=== PATIENT | male | born 1950 | race Caucasian/White ===

== ENCOUNTER → 2020-09-07 17:40 | Outpatient (CLI) | payer MEDICARE, SELFPAY ==
[2020-09-07 18:33] LABS: Alanine Aminotransferase 15 U/L (12-78); Albumin Level 4.3 g/dl (3.5-5.0); Albumin/Globulin Ratio 1.5 (1.1-1.8); Alkaline Phosphatase 48 U/L (38-126); Anion Gap 13.9 mEq/L (5-15); Aspartate Amino Transferase 28 U/L (17-59); Bilirubin,Total 0.5 mg/dl (0.2-1.3); Blood Urea Nitrogen 18 mg/dl (9-20); Calcium 9.9 mg/dl (8.4-10.2); Carbon Dioxide 24 mmol/L (22.0-30.0); Chloride 107 mmol/L (98-107); Chol/HDL Ratio 5.9 (1-3.5); Cholesterol 208 mg/dl (140-200); Estimated Glomerular Filt Rate 54 ml/min (>60); GFR (African American) 66 ML/MIN (>60); Globulin 2.8 g/dL (1.3-3.2); Glucose 121 mg/dl (74-100); HDL Cholesterol 35 mg/dl (40-60); Potassium 3.9 mmoL/L (3.5-5.1); Sodium 141 mmol/L (136-145); Total Protein,Serum 7.1 g/dl (6.3-8.2); Triglycerides 345 mg/dl (30-150); VLDL Cholesterol 69 mg/dL (0-40)
[2020-09-07 18:38] LABS: Basophils # 0.1 K/mm3 (0-0.2); Basophils % 1.3 % (0.1-2.0); Eosinophils # 0.4 K/mm3 (0.0-0.4); Eosinophils % 4.8 % (0.1-12.0); Hematocrit 46.1 % (42.0-52.0); Hemoglobin 15.4 g/dL (14.1-18.0); Lymphocytes # 2.8 K/mm3 (0.7-4.5); Lymphocytes % 33.8 % (10-50); Mean Corpuscular HGB Conc 33.5 g/dL (31.8-35.4); Mean Corpuscular Hemoglobin 32.2 pg (27.0-31.2); Mean Corpuscular Volume 96.1 fl (80-94); Mean Platelet Volume 10.1 fl (7.4-10.4); Monocytes # 0.5 K/mm3 (0.1-1.0); Monocytes % 5.9 % (1.7-9.3); Neutrophils # 4.5 K/mm3 (1.8-7.8); Neutrophils % 54.1 % (37.0-80.0); Platelet Count 259 K/mm3 (142-424); Red Cell Distribution Width 13.4 % (11.5-17.5); White Blood Count 8.4 K/mm3 (4.8-10.8)
[2020-09-07 18:44] LABS: Direct LDL Cholesterol 124.62 mg/dL (100-129)
[2020-09-07 19:04] LABS: Thyroid Stimulating Hormone 1.03 uIU/mL (0.465-4.68)
[2020-09-09 13:01] LABS: PSA, Free 0.31 ng/mL; Prostate Specific Ag 1.1 ng/mL (0.0-4.0)
== END ==
PROVIDERS: Visit Provider Family Medicine
DX: G20 Parkinson's disease (principal); I10 Essential (primary) hypertension; M15.4 Erosive (osteo)arthritis; Z86.010 Personal history of colon polyps
CPT/HCPCS: 80053; 80061; 84153; 84154; 84443; 85025

== ENCOUNTER → 2021-03-04 14:20 | Outpatient (CLI) | payer MEDICARE, SELFPAY ==
[2021-03-04 14:35] LABS: Alanine Aminotransferase 25 U/L (12-78); Albumin Level 4.6 g/dl (3.5-5.0); Albumin/Globulin Ratio 1.8 (1.1-1.8); Alkaline Phosphatase 58 U/L (38-126); Anion Gap 14.2 mEq/L (5-15); Aspartate Amino Transferase 24 U/L (17-59); Bilirubin,Total 0.6 mg/dl (0.2-1.3); Blood Urea Nitrogen 22 mg/dl (9-20); Calcium 9.9 mg/dl (8.4-10.2); Carbon Dioxide 24 mmol/L (22.0-30.0); Chloride 104 mmol/L (98-107); Chol/HDL Ratio 5.7 (1-3.5); Cholesterol 199 mg/dl (140-200); Estimated Glomerular Filt Rate 73 ml/min (>60); GFR (African American) 89 ML/MIN (>60); Globulin 2.6 g/dL (1.3-3.2); Glucose 123 mg/dl (74-100); HDL Cholesterol 35 mg/dl (40-60); Potassium 4.2 mmoL/L (3.5-5.1); Sodium 138 mmol/L (136-145); Total Protein,Serum 7.2 g/dl (6.3-8.2); Triglycerides 304 mg/dl (30-150); VLDL Cholesterol 61 mg/dL (0-40)
[2021-03-04 14:46] LABS: Direct LDL Cholesterol 119.37 mg/dL (100-129)
[2021-03-04 14:50] LABS: Basophils # 0.1 K/mm3 (0-0.2); Basophils % 1.1 % (0.1-2.0); Eosinophils # 0.2 K/mm3 (0.0-0.4); Eosinophils % 2.1 % (0.1-12.0); Hematocrit 46.4 % (42.0-52.0); Hemoglobin 15.5 g/dL (14.1-18.0); Lymphocytes # 2.5 K/mm3 (0.7-4.5); Lymphocytes % 26.9 % (10-50); Mean Corpuscular HGB Conc 33.5 g/dL (31.8-35.4); Mean Corpuscular Hemoglobin 31.8 pg (27.0-31.2); Mean Corpuscular Volume 94.8 fl (80-94); Mean Platelet Volume 9.3 fl (7.4-10.4); Monocytes # 0.5 K/mm3 (0.1-1.0); Monocytes % 5.1 % (1.7-9.3); Neutrophils # 5.9 K/mm3 (1.8-7.8); Neutrophils % 64.9 % (37.0-80.0); Platelet Count 283 K/mm3 (142-424); Red Blood Count 4.89 M/mm3 (4.60-6.20); Red Cell Distribution Width 13.4 % (11.5-17.5); White Blood Count 9.1 K/mm3 (4.8-10.8)
[2021-03-04 14:52] LABS: T4 (Thyroxine) 10.7 ug/dl (5.53-11.0)
[2021-03-04 15:05] LABS: Thyroid Stimulating Hormone 1.05 uIU/mL (0.465-4.68)
== END ==
PROVIDERS: Visit Provider Family Medicine
DX: I10 Essential (primary) hypertension (principal); Z00.00 Encounter for general adult medical examination without abnormal findings; E87.5 Hyperkalemia
CPT/HCPCS: 80053; 80061; 84436; 84443; 85025

== ENCOUNTER → 2023-04-09 13:36 | Outpatient (CLI) | payer MEDICARE, SELFPAY ==
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
== END ==
PROVIDERS: PCP Family Medicine; Visit Provider Family Medicine
DX: R60.0 Localized edema (principal); T79.9XXA Unspecified early complication of trauma, initial encounter; W30.9XXA Contact with unspecified agricultural machinery, initial encounter
CPT/HCPCS: 73700; 93971

== ENCOUNTER → 2023-04-15 13:46 | Outpatient (CLI) | payer MEDICARE, SELFPAY ==
--- NOTE | 2023-04-15 13:53 | US_ITS ---
FINAL REPORT CLINICAL HISTORY: possible foreign body (glass) left forearm FINDINGS: ULTRASOUND SOFT TISSUE LEFT ARM Limited sonographic images of the soft tissues of the left forearm were obtained. There is a 5 mm echogenic shadowing structure in the superficial presumed subcutaneous tissue adjacent to the left elbow. Precise location in regards to the or lateral is not evident. There is no surrounding fluid collection. IMPRESSION: 5 mm foreign body in the region of interest without surrounding abscess. Reviewed, Interpreted and Dictated by Robert Singleton MD Transcribed by Arielle Grant Authenticated and [facility]
--- NOTE | 2023-04-15 14:03 | XR_ITS ---
FINAL REPORT CLINICAL HISTORY: possible foreign body (glass) left forearm COMPARISON: None FINDINGS: 2 views of the left forearm were obtained. There is no acute fracture or dislocation. The joints are intact. There are 2 densities in the soft tissues along the dorsomedial proximal ulna measuring 3 and 4 mm respectively suspicious for foreign body. The distal soft tissues unremarkable. IMPRESSION: Two soft tissue densities proximal forearm suspicious for small foreign bodies. Correlate with site of suspected foreign body. Reviewed, Interpreted and Dictated by Robert Singleton MD Transcribed by Afua Trivedi Authenticated and [facility]
== END ==
PROVIDERS: PCP Family Medicine; Visit Provider Nurse Practitioner
DX: S50.852A Superficial foreign body of left forearm, initial encounter; M79.632 Pain in left forearm
CPT/HCPCS: 73090; 76882

== ENCOUNTER → 2023-09-28 08:20 | Outpatient (CLI) | payer MEDICARE, SELFPAY ==
[2023-09-28 19:45] LABS: Basophils # 0.1 K/mm3 (0-0.2); Basophils % 0.6 % (0.1-2.0); Eosinophils # 0.2 K/mm3 (0.0-0.4); Hematocrit 47.6 % (42.0-52.0); Hemoglobin 16.2 g/dL (14.1-18.0); Lymphocytes # 3.2 K/mm3 (0.7-4.5); Lymphocytes % 36.6 % (10-50); Mean Corpuscular HGB Conc 34.1 g/dL (31.8-35.4); Mean Corpuscular Hemoglobin 30.9 pg (27.0-31.2); Mean Corpuscular Volume 90.6 fl (80-94); Mean Platelet Volume 8.6 fl (7.4-10.4); Monocytes # 0.5 K/mm3 (0.1-1.0); Monocytes % 5.4 % (1.7-9.3); Neutrophils # 4.9 K/mm3 (1.8-7.8); Neutrophils % 55.5 % (37.0-80.0); Platelet Count 267 K/mm3 (142-424); Red Blood Count 5.25 M/mm3 (4.60-6.20); Red Cell Distribution Width 14.3 % (11.5-17.5); White Blood Count 8.8 K/mm3 (4.8-10.8)
[2023-09-28 19:52] LABS: Alanine Aminotransferase 28 U/L (12-78); Albumin Level 4.8 g/dl (3.5-5.0); Albumin/Globulin Ratio 1.5 (1.1-1.8); Alkaline Phosphatase 51 U/L (38-126); Anion Gap 14.7 mEq/L (5-15); Aspartate Amino Transferase 32 U/L (17-59); Bilirubin,Total 0.7 mg/dl (0.2-1.3); Blood Urea Nitrogen 23 mg/dl (9-20); Calcium 10.1 mg/dl (8.4-10.2); Carbon Dioxide 27 mmol/L (22.0-30.0); Chloride 102 mmol/L (98-107); Chol/HDL Ratio 6.4 (1-3.5); Cholesterol 211 mg/dl (140-200); Estimated Glomerular Filt Rate 59 ml/min (>60); GFR (African American) 71 ML/MIN (>60); Globulin 3.1 g/dL (1.3-3.2); Glucose 100 mg/dl (74-100); HDL Cholesterol 33 mg/dl (40-60); Potassium 3.7 mmoL/L (3.5-5.1); Sodium 140 mmol/L (136-145); Total Protein,Serum 7.9 g/dl (6.3-8.2); Triglycerides 276 mg/dl (30-150); VLDL Cholesterol 55 mg/dL (0-40)
[2023-09-28 20:03] LABS: Direct LDL Cholesterol 128.02 mg/dL (100-129)
[2023-09-28 20:22] LABS: Thyroid Stimulating Hormone 1.36 uIU/mL (0.465-4.68)
== END ==
PROVIDERS: PCP Family Medicine; Visit Provider Family Medicine
DX: I10 Essential (primary) hypertension (principal); Z00.00 Encounter for general adult medical examination without abnormal findings; E07.9 Disorder of thyroid, unspecified; Z12.5 Encounter for screening for malignant neoplasm of prostate
CPT/HCPCS: 80053; 80061; 84443; 85025; G0103

== ENCOUNTER 2024-07-05 11:00 | Outpatient (CLI) | payer MEDICARE, SELFPAY ==
[2024-07-05 22:10] LABS: Basophils # 0.1 K/mm3 (0-0.2); Basophils % 1.1 % (0.1-2.0); Eosinophils # 0.3 K/mm3 (0.0-0.4); Eosinophils % 4.4 % (0.1-12.0); Hematocrit 48.4 % (42.0-52.0); Hemoglobin 15.2 g/dL (14.1-18.0); Lymphocytes # 2.6 K/mm3 (0.7-4.5); Lymphocytes % 40.8 % (10-50); Mean Corpuscular HGB Conc 31.4 g/dL (31.8-35.4); Mean Corpuscular Hemoglobin 31.4 pg (27.0-31.2); Mean Corpuscular Volume 100.1 fl (80-94); Mean Platelet Volume 10.2 fl (7.4-10.4); Monocytes # 0.4 K/mm3 (0.1-1.0); Monocytes % 5.7 % (1.7-9.3); Platelet Count 223 K/mm3 (142-424); Red Blood Count 4.84 M/mm3 (4.60-6.20); Red Cell Distribution Width 13.8 % (11.5-17.5); White Blood Count 6.3 K/mm3 (4.8-10.8)
[2024-07-05 22:31] LABS: Alanine Aminotransferase 34 U/L (12-78); Albumin/Globulin Ratio 1.4 (1.1-1.8); Alkaline Phosphatase 48 U/L (38-126); Amylase 67 U/L (30-110); Anion Gap 13.3 mEq/L (5-15); Aspartate Amino Transferase 26 U/L (17-59); Bilirubin,Total 0.5 mg/dl (0.2-1.3); Blood Urea Nitrogen 21 mg/dl (9-20); Calcium 9.6 mg/dl (8.4-10.2); Carbon Dioxide 25 mmol/L (22.0-30.0); Chloride 104 mmol/L (98-107); Estimated Glomerular Filt Rate 59 ml/min (>60); GFR (African American) 71 ML/MIN (>60); Globulin 2.9 g/dL (1.3-3.2); Glucose 149 mg/dl (74-100); Lipase 106 U/L (23-300); Potassium 4.3 mmoL/L (3.5-5.1); Sodium 138 mmol/L (136-145); Total Protein,Serum 6.9 g/dl (6.3-8.2)
== END 2024-07-05 23:59 | disposition home or self-care (01) ==
LOC: LAB.DROPOF 07-06 13:42
PROVIDERS: PCP Nurse Practitioner; Visit Provider Nurse Practitioner
DX: R10.84 Generalized abdominal pain (principal)
CPT/HCPCS: 80053; 82150; 83690; 85025

== ENCOUNTER 2024-07-28 08:38 | Outpatient (CLI) | payer MEDICARE, SELFPAY ==
--- NOTE | 2024-07-28 08:46 | CT_ITS ---
FINAL REPORT TECHNIQUE: Axial images through the abdomen and pelvis were performed without contrast. This study was performed with techniques to keep radiation doses as low as reasonably achievable, (ALARA). Individualized dose reduction techniques using automated exposure control or adjustment of mA and/or kV according to the patient's size were employed. CLINICAL HISTORY: abd pain, dyspepsia COMPARISON: None FINDINGS: Abdomen: The lung bases are clear. There is mild fatty infiltration of the liver. There are gallstones present in the dependent portion of the gallbladder. The common bile duct is moderately distended, measuring 12 mm in diameter, with a questionable tiny density in the distal common bile duct, worrisome for possible choledocholithiasis. The spleen, pancreas, and adrenals are unremarkable. There are small right renal nonobstructing stones present, seen on image #38 of series 601. Pelvis: The urinary bladder is unremarkable. The appendix is not visualized. There is no pelvic mass or inflammation. Bilateral inguinal hernias are present containing fat, larger on the left than on the right. IMPRESSION: Gallstones are present in the dependent portion of the gallbladder, and the common bile duct is moderately distended, measuring 12 mm in diameter. There may be a tiny density in the distal common bile duct, that may represent choledocholithiasis. Small right nonobstructing renal stones are present. Reviewed, Interpreted and Dictated by Dylan Gonzalez MD Transcribed by Maryjane Donald Authenticated and [facility]
--- NOTE | 2024-07-28 08:46 | US_ITS ---
FINAL REPORT CLINICAL HISTORY: abd pain, dyspepsia FINDINGS: ULTRASOUND RIGHT UPPER QUADRANT: Sonographic images of the right upper quadrant were obtained. The pancreas is partially obscured. The liver is slightly inhomogeneous with some areas of increased echogenicity that likely represent focal fatty infiltration. The gallbladder contains a phrygian cap, and there is a small amount of sludge present. There is no evidence of biliary ductal dilatation.The common duct measures 3 mm. Limited images of the right kidney are unremarkable. IMPRESSION: Focal fatty infiltration of the liver. Phrygian cap in the gallbladder with a small amount of sludge. No evidence of biliary ductal dilatation is seen. Reviewed, Interpreted and Dictated by Dylan Gonzalez MD Transcribed by Maryjane Donald Authenticated and [facility]
== END 2024-07-28 23:59 | disposition home or self-care (01) ==
LOC: RAD 08:41
PROVIDERS: PCP Family Medicine; Visit Provider Family Medicine
DX: R10.9 Unspecified abdominal pain (principal); R10.13 Epigastric pain
CPT/HCPCS: 74176; 76705

== ENCOUNTER 2024-09-08 10:51 | Outpatient (CLI) | payer MEDICARE, SELFPAY ==
[2024-09-08 18:51] LABS: Adenovirus,PCR Not Detected (NotDetected); Bordetella Pertussis Not Detected (NotDetected); Chlamydophila Pneumoniae, PCR Not Detected (NotDetected); Coronavirus 229E Not Detected (NotDetected); Coronavirus NL63 Not Detected (NotDetected); Coronavirus OC43 Not Detected (NotDetected); Coronovirus HKU1,PCR Not Detected (NotDetected); Human Metapneumovirus Not Detected (NotDetected); Influenza A, PCR Not Detected (NotDetected); Influenza AH1, 2009 Not Detected (NotDetected); Influenza AH1, PCR Not Detected (NotDetected); Influenza AH3,PCR Not Detected (NotDetected); Influenza B, PCR Not Detected (NotDetected); Mycoplasma Pneumoniae, PCR Not Detected (NotDetected); Parainfluenza 1, PCR Not Detected (NotDetected); Parainfluenza 2, PCR Not Detected (NotDetected); Parainfluenza 3, PCR Not Detected (NotDetected); Parainfluenza 4, PCR Not Detected (NotDetected); Respiratory Syncytial Virus Not Detected (NotDetected); Rhinovirus/Enterovirus Not Detected (NotDetected)
[2024-09-08 23:22] LABS: Coronavirus 19, PCR Detected (NotDetected)
== END 2024-09-08 23:59 | disposition home or self-care (01) ==
LOC: LAB.DROPOF 09-09 09:44
PROVIDERS: PCP Nurse Practitioner Family; Visit Provider Nurse Practitioner Family
DX: J02.9 Acute pharyngitis, unspecified (principal)
CPT/HCPCS: 87070; 87265; 87486; 87581; 87632; 87635

== ENCOUNTER 2024-09-19 10:50 | Outpatient (CLI) | payer MEDICARE, SELFPAY | END 2024-09-19 23:59 | disposition home or self-care (01) | LOC: LAB.DROPOF 09-20 09:21 | PROVIDERS: PCP Nurse Practitioner; Visit Provider Nurse Practitioner | DX: L72.3 Sebaceous cyst (principal); L08.9 Local infection of the skin and subcutaneous tissue, unspecified | CPT/HCPCS: 87070; 87205 ==

== ENCOUNTER 2025-06-07 09:20 | Outpatient (CLI) | payer MEDICARE, SELFPAY ==
--- OUTSIDE RECORDS SUMMARY | 2024-06-30 09:18 | XMS_ITS | Continuity of Care Document ---
Author Name [facility] Organization [facility] Care Team Providers Care [employer] Operator Name Role Phone [facility] Unavailable Unavailable Problems Combined list of problems from Department of Defense and Veterans Affairs facilities. It does not include entries that were removed or entered in error. Problem Status Onset Date Problem Type Date of Resolution Comments Source Allergic rhinitis Active Condition [place] [place] Anxiety Active Condition [place] Benign essential hypertension Active Condition [place] Chronic obstructive pulmonary disease Active Condition [place] [facility] Exposure to environmental pollution, occupational Active Condition [place] Exposure to potentially hazardous substance Active Condition [facility] Haematoma of lower leg Active Condition [place] Hyperlipidemia Active Condition [place] Hypothyroidism Active Condition [place] Parkinsonian tremor Active Condition [facility] [place] Medications Combined list of outpatient medications from Department of Defense and Veterans Affairs facilities.Medications provided include 1) outpatient medications from the last 15 months, and 2) patient-reported medications. Medication Details Route Status Patient Instructions Prescription Expires Prescription Number Last Dispense Date Ordering Provider Order Date Order Qty Source ASCORBIC ACID 500MG TAB TAKE TWO TABLETS BY MOUTH ONCE DAILY ORAL ACTIVE SHEA,INE Z E 2017 [place] ASPIRIN 81MG TAB,CHEWABL E CHEW ONE TABLET BY MOUTH ONCE DAILY ORAL ACTIVE SHEA,BISI Z E 2017 [place] CARBIDOPA/L EVODOPA 25MG/100MG TAB TAKE ONE AND ONE-HALF (1 1/2) TABLETS CARBIDOP A 25/LEVOD OPA 250MG TAB BY MOUTH THREE TIMES A DAY ORAL ACTIVE SHEA,INE Z E 2018 [place] HYDROCHLORO THIAZIDE 12.5MG/LOSA RTAN POTASSIUM 50MG TAB TAKE ONE TABLET BY MOUTH ONCE DAILY ORAL ACTIVE SHEA,INE Z E 2017 [place] LEVOCETIRIZ INE DIHYDROCHLO RIDE 5MG TAB TAKE ONE TABLET BY MOUTH ORAL ACTIVE SHEA,INE Z E 2017 [place] LEVOTHYROXI NE NA 125MCG TAB (SYNTHROID) TAKE ONE TABLET BY MOUTH EVERY MORNING ORAL ACTIVE SHEA,BISI Pérez E 2017 [place] LORAZEPAM 2MG TAB TAKE ONE-HALF TABLET BY MOUTH TWICE A DAY ORAL ACTIVE SHEA,BISI Pérez E 2017 [place] METOPROLOL SUCCINATE 200MG TAB,SA TAKE ONE-HALF TABLET BY MOUTH ONCE DAILY ORAL ACTIVE SHEA,BISI Pérez E 2017 [place] PRAVASTATIN NA 40MG TAB TAKE ONE-HALF TABLET BY MOUTH ONCE DAILY ORAL ACTIVE SHEA,BISI Pérez E 2017 [place] RASAGILINE MESYLATE 0.5MG TAB TAKE TWO TABLETS BY MOUTH ONCE DAILY ORAL ACTIVE SHEA,BISI Pérez E 2018 [place] VITAMIN E 400UNT CAP TAKE 1 CAPSULE BY MOUTH ORAL ACTIVE SHEA,BISI Pérez E 2017 [place] [facility] Allergies, Adverse Reactions, Alerts Combined list of allergies from Department of Defense and Veterans Affairs facilities. It does not include entries that were removed or entered in error. Substance Category Reaction Severity Reaction type Status Date Reported Comments Source IBUPROFEN Propensity to adverse reactions to drug (finding) Low blood pressure active 8 [place] PENICILLIN Propensity to adverse reactions to drug (finding) Eruption, Headache active 8 [place] Immunizations Combined list of available immunizations from the Department of Defense and Veterans Affairs facilities. Immunization Series Date Given Administered By Site Reaction Lot Number CVX Code Drug Administrative Manager Status Comments Source COVID-19 (MODERNA), MRNA, LNP-S, PF, 100 MCG/0.5 ML DOSE 2 2020 207 complet ed [place] COVID-19 (MODERNA), MRNA, LNP-S, PF, 100 MCG/0.5 ML DOSE 1 2020 207 complet ed [place] TDAP 2017 115 complet ed [place] Encounters Combined list of: 1) Encounters from Department of Veterans Affairs facilities going backup to the last 18 months, not all VA inpatient encounters are included; 2) Encounters from the Department of Defense facilities going backup to 280 months. Location Location Details Encounter Type Encounter Number Reason For Visit Attending Provider ADM Date DC Date Status [facility] [id number] 06/30 [facility] Social History Combined list of available smoking, tobacco, and other social history from Department of Defense and Veterans Affairs facilities. Social History Type Response Date Comment [facility] e Tobacco smoking status [facility] VA-TOBACCO NEVER USED 08/12/20 23 [place] History of tobacco use VA-TOBACCO FORMER USER 08/20/2022 [place] History of tobacco use VA-TOBACCO NEVER USED 08/21/2021 [place] History of tobacco use LIFETIME NON-SMOKER 08/29/2020 [place] History of tobacco use VA-TOBACCO NEVER USED 08/24/2020 [place] History of tobacco use LIFETIME NON-SMOKER 08/24/2018 [place] History of tobacco use LIFETIME NON-SMOKER 08/05/2018 [place]
--- OUTSIDE RECORDS SUMMARY | 2025-02-07 05:30 | XMS_ITS | Continuity of Care Document ---
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 Continue as directed. - Active prednisolone acetate 1 % eye drops,suspension instill 1 drop by ophthalmic route 4 times every day into surgery eye beginning 2 days prior to surgery. Continue as directed. - Active Vigamox 0.5 % eye drops instill 1 drop by ophthalmic route 4 times every day into surgery eye beginning 2 days prior to surgery. Continue as directed. - Active lorazepam 2 mg tablet take 1 tablet by oral route 3 times every day as needed 2 MG - Active pravastatin 40 mg tablet take 1 tablet by oral route every day 40 MG - Active aspirin 81 mg tablet,delayed release take 1 tablet by oral route every day 81 MG - Active lisinopril 20 mg-hydrochlorothiazi de 12.5 mg tablet take 1 tablet by oral route every day 1.00 tablet - Active Tirosint 125 mcg capsule take 1 capsule by oral route every day 125 MCG - Active fenofibrate 160 mg tablet take 1 tablet by oral route every day 160 MG - Active Kapspargo Sprinkle 100 mg capsule,extended release take 1 capsule by oral route every day 100 MG - Active carbidopa 25 mg-levodopa 250 mg tablet take 1 tablet by oral route 3 times every day 1.00 tablet - Active rasagiline 1 mg tablet take 1 tablet by oral route every day 1 MG - Active Zyrtec 10 mg tablet take 1 tablet by oral route every day 10 MG - Active Procedures Procedure Date POSTOP FOLLOW-UP VISIT [facility] Post Op Follow Up Visit Extracapsular Cataract With IOL Manual O r Mech Complex Extracapsular Cataract With IOL Manual Or Mech Complex Wo Endoscopic Cyclo Ophthalmic Biometry W Iol Calculation Un ilateral Surg Deposit ASC OCT No Charge Uni Or Bi OFFICE/OUTPATIENT VISIT, EST, Moderate F Eye Exam Established Patient Comprehensi ve 1 Or More Visits Discission Of Secondary Membranous Catar act Yag 1 Or More Stages Discission Of Secondary Membranous Catar act Yag 1 Or More Stages Surgery Deposit OFFICE/OUTPATIENT VISIT, EST, Moderate J Post Op Follow Up Visit Post Op Follow Up Visit Post Op Follow Up Visit Extracapsular Cataract With IOL Manual Or Mech Complex Wo Endoscopic Cyclo Extracapsular Cataract With IOL Manual O r Mech Complex OCT No Charge Uni Or Bi CORNEAL TOPOGRAPHY Ophthalmic Biometry W Iol Calculation Un ilateral OFFICE/OUTPATIENT VISIT, NEW Advance Directives Directive Yes / No Effective Date File Name No Information Encounters Encounter Description Practice Location Reason(s) For Visit Diagnoses Date Provider Providers Copied on Encounter [facility] , [address] [place], [address], [place] tel:[phone] OSCAR PEREZ Phaco (chief complaint) Presence of intraocular lens Adonis Faulkner. [address] [place], [address], [place]. tel:[phone] Referring Provider: Kaushik Lamb, [address] [place], [place], [facility]. tel:[phone] [facility] , [address] [place], [address], [place] tel:[phone] OSCAR Brandeeálvaro 2 DAY PHACO (chief complaint) Presence of intraocular lens Antonella Umana. [address], [address], [place], [place], [id number], [place]. tel:[phone] Referring Provider: Dong Greer, [address], [place], [address] . tel:[phone] [facility], [address] [place], [place], [facility], [place] tel:[phone] [facility] [place] Age-related nuclear cataract, left eyePupillary abnormality, left eye [facility]. [address] [place], [place], [id number], [place]. tel:[phone] Referring Provider: Dong Greer, [address], [place], [address] . tel:[phone] [facility] , [address] [place], [place], [facility], [place] tel:[phone] [facility] [place] Age-related nuclear cataract, left eyePupillary abnormality, left eye Antonella Umana. [address], [address], [place], [place], [id number], [place]. tel:[phone] Referring Provider: Dong Greer, [address], [place], [address] . tel:[phone] [facility], [address] [place], [place], [facility], [place] tel:[phone] [facility] [place] No Information [facility]. [address] [place], [place], [id number], [place]. tel:[phone] [facility] , [address] [place], [address], [place] tel:[phone] [facility] Age-related nuclear cataract, left eye Antonella Umana. [address], [address], [place], [place], [id number], [place]. tel:[phone] Referring Provider: Dong Greer, [address], [place], [address] . tel:[phone] [facility] , [address] [place], [address], [place] tel:[phone] [facility] [place] No Information Corporate Doctor. [address] [place], [place], [id number], [place]. tel:[phone] Referring Provider: No Ref Doc No Referring Doc. OFFICE/OUTPAT IENT VISIT, EST, Moderate [facility] , [address] [place], [address], [place] tel:[phone] [facility] cataracts (chief complaint) Age-related nuclear cataract, left eyePresence of intraocular lensDry eye syndrome of bilateral lacrimal glands Antonella Umana. [address], [address] [facility], [place], [place], [id number], [place]. tel:[phone] Referring Provider: Dong Greer, [address] [facility], [place], [address] . tel:[phone] [facility] , [address] [place], [place], [facility], [place] tel:[phone] [facility] floaters (chief complaint) Parkinson disease, symptomaticAge- related nuclear cataract, left eyeDry eye syndrome of bilateral lacrimal glandsPVD right eye Adonis Faulkner. [address] [place], [address], [place]. tel:[phone] Referring Provider: Kaushik Lamb, [address] [place], [address]. tel:[phone] [facility], [address] [place], [address], [place] tel:[phone] [facility] [place] Other secondary cataract, right eye [facility]. [address] [place], [place], [id number], [place]. tel:[phone] Referring Provider: Dong Greer, [address], [place], [address] . tel:[phone] [facility] , [address] [place], [place], [facility], [place] tel:[phone] [facility] [place] Other secondary cataract, right eye Antonella Umana. [address], [address], [place], [place], [id number], [place]. tel:[phone] Referring Provider: No Ref Doc No Referring Doc. [facility] , [address] [place], [address], [place] tel:[phone] [facility] [place] No Information Antonella Umana. [address], [address], [place], [place], [id number], [place]. tel:[phone] Referring Provider: No Ref Doc No Referring Doc. OFFICE/OUTPAT IENT VISIT, EST, Moderate [facility] , [address] [place], [address], [place] tel:[phone] OSCAR Eason YAG Eval (chief complaint) PCO (posterior capsular opacification), rightPresence of pseudophakiaAge -related nuclear cataract, left eye Antonella Umana. [address], [address], [place], [place], [id number], [place]. tel:[phone] Referring Provider: No Ref Doc No Referring Doc. [facility] , [address] [place], [place], [facility], [place] tel:[phone] OSCAR Eason 1 month s/p phaco (chief complaint) Encounter for surgical aftercare following surgery on a sense organ Leonard Gonzales. [address] [place], [place], [id number], [place]. tel:[phone] Referring Provider: Janet Pathak, [address] [place], [address] . tel:[phone] [facility] , [address] [place], [facility], [place] tel:[phone] OSCAR Brandeeálvaro Phaco OD 1 week (chief complaint) Presence of pseudophakia Leonard Gonzales. [address] [place], [place], [id number], [place]. tel:[phone] Referring Provider: Janet Pathak, [address] [place], [address] . tel:[phone] [facility] , [address] [place], [place], [facility], [place] tel:[phone] OSCAR Landeros 1 day s/p PCIOL (chief complaint) Presence of pseudophakia Leonard Gonzales. [address] [place], [place], [id number], [place]. tel:[phone] Referring Provider: Janet Pathak, [address] [place], [address] . tel:[phone] [facility] , [address] [place], [facility], [place] tel:[phone] OSCAR Landeros Age-related nuclear cataract, right eye Leonard Gonzales. [address] [place], [place], [id number], [place]. tel:[phone] [facility] , [address] [place], [facility], [place] tel:[phone] [facility] [place] Age-related nuclear cataract, right eyePupillary abnormality, right eye Leonard Gonzales. [address] [place], [place], [address] [place] [address], . tel:[phone] Referring Provider: Janet Pathak, [address] [place], [address] . tel:[phone] [facility], [address] [place], [facility], tel:[phone] [facility] [place] Age-related nuclear cataract, right eyePupillary abnormality, right eye [facility] [place]. [address] [place], [place], [address] [place] [address], . tel:[phone] Referring Provider: Janet Pathak, [address] [place], [address] . tel:[phone] [facility], [address] [place], [facility], tel:[phone] [facility] [place] No Information [facility] [place]. [address] [place], [place], [address] [place] [address], . tel:[phone] OFFICE/OUTPAT IENT VISIT, NEW [facility] , [address] [place], [place], [facility], tel:[phone] [facility] cataract consult (chief complaint) Age-related nuclear cataract, right eyeCorneal scar, right eye Leonard Gonzales. [address] [place], [place], [id number], . tel:[phone] Referring Provider: No Ref Doc No Referring Doc. Family History Family Member Type Diagnosis Age At Onset Problem No family history of Macular degeneration Problem Family history of hypertensi on Brother Problem cancer of colon Problem No family history of Diabete s mellitus Problem No family history of Glaucom a Mother Problem malignant neopla sm of breast in first degree relative (Cause Of ) Problem No family history of Catarac ts Problem No family history of Retinal disease Payers Payer name Insurance type Covered libertarian ID Daniella Maxwell (s) Medicare BL [id number] Social History Type Description Quantity Date Captured Comments Alcohol Use Details Unknown 2 glasses occasionally Caffeine Use Details 1 cup per day Tobacco Use Status Current non-smoker Smoking Status Never smoker Sex Male Chief Complaint And Reason For Visit From encounter dated '02/07/2025 09:30'. POW1 Phaco (chief complaint). Description: The 74 year old patient presents for evaluation of POW1 Phaco in the left eye. Pt reports vision is good. Pt denies flashes, floaters, glares, or halos. Pt reports floaters OD. Brown 4x OSPred 4x OS PT reports using 1 drop each around 7 am Reason For Referral Reason For Referral No Information Plan Of Treatment Date Type Action Status Appointment Lonnie Hart BOOKED History Of Present Illness Encounter Date Complaint History Of Prese nt Illness POW1 Phaco The 74 year old patient presents for evaluation of POW1 Phaco in the left eye. Pt reports vision is good. Pt denies flashes, floaters, glares, or halos. Pt reports floaters OD. Brown 4x OSPred 4x OS PT reports using 1 drop each around 7 am 2 DAY PHACO The 74 year old patient presents for evaluation of 2 DAY PHACO in the left eye. PT states the vision is great OS, feels like he has something in the eye, denies flashes of light, floaters, pain. GTTS: pred QID OSdic QID OSvig QID OS cataracts The 74 year old patient presents for evaluation of cataracts in the right and left eyes. Patient presents with poor vision in left eye. Pt had cataract surgery in right eye in 2019, and s/p YAG PC in right eye in 2022. The vision has been poor for the past couple months. Vision is gradually worsening. Patient is having difficulty with glare driving at night. Little improvement with glasses. -see [id number]/Retina/Macula Degen FHx: None(-) History of crossed or lazy eye (-) Flomax (tamsulosin) use(-) Eye trauma(-) Diabetes(-) Blood thinners(-) Prior LASIK/PRK (-) History of eye surgery(-) Prior CTL wear floaters The 74 year old patient presents for evaluation of floaters in the right eye. PT states he feels like there is something in his eye, is seeing a cob web like affect, has a history of high blood pressure, numbers have been normal recently, denies flashes of light, YAG Eval The 72 year old male presents for evaluation of YAG Eval in the right eye and left eye. Patient presents with decreased vision OU. It has been gradually worsening over the past month. Patient had cataract surgery years 2 years ago OD. Pt does not wear glasses. Pt denies eye pain, but states it feels tired and strained right now . Pt denies double vision, flashes of light OU. Pt confirms floaters. Pt also states he has Parkinson's, has a had time remembering dates/ poor historian. -see [id number] Meds: Visine PRN; states he used Visine this morning 1 month s/p phaco The 70 year ol d male presents for a 1 month s/p phaco surgery in the right eye. Pt describes vision to be improved. Denies eye pain, flashes and floaters. Pt denies any problems with postoperative instructions. Pt states that administers drops, and he is not sure how many are left. Phaco OD 1 week The 70 year old male presents for evaluation of Phaco OD 1 week. Vision is good. Occasional FB sensation OD 1 day s/p PCIOL The 70 year old male presents for evaluation of 1 day s/p PCIOL in the right eye. Pt slept well last night. Pt VA is good. Pt had mild eye pain, but it went away. Pt denies any flashes of light, or floaters. Pt denies any problems with postoperative instructions.Meds: Prolensa 1/0, pred 4/0, and vigamox 4/0. AT sample given cataract consult The 70 year old male presents for evaluation of cataract consult in the right and left eyes. Patient states that his vision is blurry. Patient was told 2 months ago that the cataracts were ready, Patient thought it was his glasses. He notices glare, light sensitivity, and halos. He has difficulty with reading, driving, and watching tv. Patient denies floaters, flashes, or pain. Functional Status Date Functional Assessmen t No Information Instructions Date Instruction Additional Infor thomas Impression/Plan Related to Prese nce of intraocular lens Impression/Plan Related to Prese nce of intraocular lens Impression/Plan Impression/Plan Impression/Plan Impression/Plan Impression/Plan Related to Prese nce of pseudophakia Impression/Plan Related to Prese nce of pseudophakia Impression/Plan Assessments Type Assessment Date assessment Presence of intraocular lens Feb Patient Care Teams Name Effective Dates (start - stop) Status Members No Information
--- OUTSIDE RECORDS SUMMARY | 2025-04-20 17:26 | XMS_ITS | Encounter Summary ---
Author Organization [place] [address] Care Team Providers Care Dye Boarding Machine Operator Name Role Phone Alonso You MD Primary Care Provider [phone] Reason for Visit * Reason Comments Fall Fall off a bulldozer track. Approx 3 feet fall to concrete. Unknown if loss of consciousness. PT landed on left shoulder. Hx parkinsons. Hit head. Back pain Encounter Details Date Type Department Care Team (Late st Contact Info) Description 04/20/2025 5:26 PM EDT - 04/20/2025 10:07 PM EDT Emergency [facility] [address] [place] [address]. [place] [address] Wilian Diaz MD [address] [place] [id number] Fall in home, initial encounter (Primary Dx); Injury of head, initial encounter; Abrasion of scalp, initial encounter; Contusion of right lower leg, initial encounter; Upper back pain Discharge Disposition: Home or Self Care Social History Tobacco Use Types Packs/Day Years Used Date Smoking Tobacco: Never Smokeless Tobacco: Never Alcohol Use Standard Drinks/Week Comments Yes 0 (1 standard drink = 0.6 oz pur e alcohol) Rarely Sex and Gender Information Value Date Recorded Sex Assigned at Not on file Legal Sex Male 5:47 PM EDT Gender Identity Not on file Sexual Orientation Not on file documented as of this encounter Last Filed Vital Signs Vital Sign Reading Time Taken Comments Blood Pressure 137/83 04/20/2025 10:00 PM EDT Pulse 63 04/20/2025 8:00 PM EDT Temperature 36.7 C (98.1 F) 04/20/2025 5:30 PM EDT Respiratory Rate 16 04/20/2025 8:00 PM EDT Oxygen Saturation 97% 04/20/2025 9:30 PM EDT Inhaled Oxygen Concentration - - Weight - - Height - - Body Mass Index - - documented in this encounter Functional Status * Suicide Severity Rating Answer Date of Assessment Author No Risk 04/20/2025 5:17 PM EDT Suellen Joy RN * [place] Suicide Severity Rating Scale (Q shift for moderate and high) Question Answer Date of Assessment Author 1. In the past month, have y ou wished you were or wished you could go to sleep and not wake up? 0 04/20/2025 5:17 PM EDT Vita Joy RN 2. In the past month, have y ou actually had any thoughts of killing yourself? (If no, skip to question 6) 0 04/20/2025 5:17 PM EDT Vita Joy RN 6. Have you ever done anything, started to do anything, or prepared to do anything to end your life? 0 04/20/2025 5:17 PM EDT Josefa Joy RN documented as of this encounter Discharge Instructions * Discharge Instructions* Reji Schultz PA - 04/20/2025 9:22 PM EDT Take medications as prescribed. Follow-up with primary care for recheck of injuries. Return to the emergency room for worsening symptoms or other concerns. documented in this encounter Medications at Time of Discharge acetaminophen (TYLENOL) 650 mg Oral Tablet Sustained Release Take 650 mg by mouth every 8 hours as needed for Pain. ascorbic acid, vitamin C, (VITAMIN C) 1,000 mg Oral Tablet Take 1,000 mg by mouth daily. aspirin 81 mg Oral Tablet, Delayed Release (E.C.) Take by mouth daily. carbidopa-levodop a (SINEMET) 25-250 mg Oral Tablet Take 1 Tab by mouth 3 times daily. cetirizine (ZYRTEC) 10 mg Oral Tablet Take 10 mg by mouth daily. docusate sodium (COLACE) 100 mg Oral Capsule Take 1 Cap by mouth 2 times daily as needed for Constipation. 40 Cap 12/16/2017 Fenofibric Acid 135 mg Oral Capsule, Delayed Release(E.C.) 11/25/2017 fish oil omega 3-dha-epa 300-1,000 mg Oral Capsule, Delayed Release(E.C.) Take 1 g by mouth daily. gemfibrozil (LOPID) 600 mg Oral Tablet 10/09/2017 levocetirizine (XYZAL) 5 mg Oral Tablet Take 5 mg by mouth every evening. levothyroxine (SYNTHROID) 125 mcg Oral Tablet 09/16/2017 lidocaine (LIDODERM) 5 % Top Adhesive Patch, Medicated Place 1 Patch onto the skin daily. Apply for 12 hours, remove for 12 hours, then apply new patch 30 Patch 04/20/2025 lisinopriL-hydroc hlorothiazide (PRINZIDE;ZESTORE TIC) 20-12.5 mg Oral Tablet Take 1 Tablet by mouth daily. LORazepam (ATIVAN) 1 mg Oral Tablet Take 1 mg by mouth nightly. 09/24/2017 losartan-hydrochl orothiazide (HYZAAR) 50-12.5 mg Oral Tablet Take 1 Tab by mouth daily. metoprolol succinate ER (TOPROL-XL) 100 mg Oral Tablet Sustained Release 24 hr Take 100 mg by mouth daily. pravastatin (PRAVACHOL) 20 mg Oral Tablet Take by mouth nightly. Rasagiline 1 mg Oral Tablet daily. 10/27/2017 tocopherol acetate (VITAMIN E) 400 unit Oral Capsule Take by mouth daily. methocarbamoL (ROBAXIN) 750 mg Oral Tablet Take 1 Tablet by mouth 3 times daily as needed for Pain for up to 30 days. 20 Tablet 04/20/2025 05/20/2025 documented as of this encounter Ordered Prescriptions Prescription Sig Dispense Quantity Refills Last Filled Start Date End Date lidocaine (LIDODERM) 5 % Top Adhesive Patch, Medicated Place 1 Patch onto the skin daily. Apply for 12 hours, remove for 12 hours, then apply new patch 30 Patch 04/20/2025 methocarbamoL (ROBAXIN) 750 mg Oral Tablet Take 1 Tablet by mouth 3 times daily as needed for Pain for up to 30 days. 20 Tablet 04/20/2025 05/20/2025 documented in this encounter Discharge Disposition Disposition Code Departure Means Destination Comment s Home or Self Senior Care documented in this encounter ED Notes * Reji Schultz PA - 04/20/2025 5:09 PM EDT Chief Complaint Patient presents with Fall Fall off a bulldozer track. Approx 3 feet fall to concrete. Unknown if loss of consciousness. PT landed on left shoulder. Hx parkinsons. Hit head. Back pain Patient seen for Dr. Diaz, who was available for consultation during patient encounter. This is a 74-year-old male with history of hypertension, hyperlipidemia, and Parkinson's who presents to the emergency department for evaluation of injuries after falling off a bulldozer. He states he was working on a bulldozer in his shop. He states that one of the bolts came loose as he was pulling and fell backwards off the bulldozer. He estimates he was standing at least 3 feet off the ground. He does have swelling and abrasion to the back of his head. He states he does not believe he lost consciousness but he cannot be sure. He does report neck and upper back pain. He also describes painto the lateral aspect right lower leg. Denies any pain of the knee or ankle. Denies numbness or ting ling to the upper or lower extremities. He denies nausea or vomiting after hitting his head. Deniesany changes in vision. No chronic anticoagulation. Patient History Allergies Allergen Reactions Penicillins Rash Home Medications: Prior to Admission medications Medication Sig Start Date End Date Last Dose Authorizing Provider acetaminophen (TYLENOL) 650 mg Oral Tablet Sustained Release Take 650 mg by mouth every 8 hours as needed for Pain. Provider, Historical ascorbic acid, vitamin C, (VITAMIN C) 1,000 mg Oral Tablet Take 1,000 mg by mouth daily. Provider, Historical aspirin 81 mg Oral Tablet, Delayed Release (E.C.) Take by mouth daily. Provider, Historical carbidopa-levodopa (SINEMET) 25-250 mg Oral Tablet Take 1 Tab by mouth 3 times daily. Provider, Historical cetirizine (ZYRTEC) 10 mg Oral Tablet Take 10 mg by mouth daily. Provider, Historical docusate sodium (COLACE) 100 mg Oral Capsule Take 1 Cap by mouth 2 times daily as needed for Constipation. Patient not taking: Reported on 06/10/2023 12/16/17 Nell Sheppard MD Fenofibric Acid 135 mg Oral Capsule, Delayed Release(E.C.) 11/25/17 Provider, Historical fish oil omega 3-dha-epa 300-1,000 mg Oral Capsule, Delayed Release(E.C.) Take 1 g by mouth daily. Patient not taking: Reported on 06/10/2023 Provider, Historical gemfibrozil (LOPID) 600 mg Oral Tablet 10/09/17 Provider, Historical levocetirizine (XYZAL) 5 mg Oral Tablet Take 5 mg by mouth every evening. Patient not taking: Reported on 06/10/2023 Provider, Historical levothyroxine (SYNTHROID) 125 mcg Oral Tablet 09/16/17 Provider, Historical lisinopriL-hydrochlorothiazide (PRINZIDE;ZESTORETIC) 20-12.5 mg Oral Tablet Take 1 Tablet by mouth daily. Provider, Historical LORazepam (ATIVAN) 1 mg Oral Tablet Take 1 mg by mouth nightly. 09/24/17 Provider, Historical losartan-hydrochlorothiazide (HYZAAR) 50-12.5 mg Oral Tablet Take 1 Tab by mouth daily. Patient not taking: Reported on 06/10/2023 Provider, Historical metoprolol succinate ER (TOPROL-XL) 100 mg Oral Tablet Sustained Release 24 hr Take 100 mg by mouthdaily. Provider, Historical pravastatin (PRAVACHOL) 20 mg Oral Tablet Take by mouth nightly. Provider, Historical Rasagiline 1 mg Oral Tablet daily. 10/27/17 Provider, Historical tocopherol acetate (VITAMIN E) 400 unit Oral Capsule Take by mouth daily. Provider, Historical Past Medical History: Past Medical History: Diagnosis Date Arthritis Headache sinus History of metal removed from eye needs clearance for future mris. dt Hyperlipidemia Hypertension Insomnia Parkinson disease (HCC) Thyroid disease hypo Social History: reports that he has never smoked. He has never used smokeless tobacco. He reports current alcohol use. He reports that he does not use drugs. E-Cigarettes (such as Vapes or Juul) E-Cigarette Use Never User Family History: Family History Problem Relation Age of Onset Cancer Mother Breast High Cholesterol Father Heart Disease Father Surgical History: Past Surgical History: Procedure Laterality Date APPENDECTOMY CARDIAC CATHETERIZATION distant past 15-20 years ago COLONOSCOPY HYDROCELE EXCISION Right 12/16/2017 RIGHT OPEN HYDROCELECTOMY; Surgeon: Nell Sheppard MD; Location: [facility]IN OR; Service: Urology Review of Systems Review of Systems All other systems reviewed and are negative. Physical Exam Blood pressure (!) 137/107, pulse 68, temperature 98.1 ??F (36.7 ??C), temperature source Oral, resp. rate 15, SpO2 100%. Physical Exam Vitals and nursing note reviewed. Constitutional: General: He is not in acute distress. Appearance: Normal appearance. Comments: Patient appears comfortable and nontoxic. HENT: Head: Normocephalic. Comments: Hematoma and superficial abrasion left occipital scalp. No laceration or gaping wound. Right Ear: Tympanic membrane and ear canal normal. Left Ear: Tympanic membrane and ear canal normal. Nose: Nose normal. Mouth/Throat: Mouth: Mucous membranes are moist. Pharynx: Oropharynx is clear. Eyes: Extraocular Movements: Extraocular movements intact. Conjunctiva/sclera: Conjunctivae normal. Pupils: Pupils are equal, round, and reactive to light. Neck: Comments: No midline tenderness or step-off. Cardiovascular: Rate and Rhythm: Normal rate and regular rhythm. Pulses: Normal pulses. Heart sounds: Normal heart sounds. Pulmonary: Effort: Pulmonary effort is normal. No respiratory distress. Breath sounds: Normal breath sounds. Chest: Chest wall: No tenderness. Abdominal: General: There is no distension. Palpations: Abdomen is soft. Tenderness: There is no abdominal tenderness. There is no guarding or rebound. Musculoskeletal: Cervical back: Normal range of motion and neck supple. Comments: Tenderness to palpation to bilateral thoracic and lumbar paraspinal musculature. No midline tenderness or step-off. Tenderness palpation anterior lateral right lower leg. No bony tenderness palpation or decreased range of motion of the knee or ankle. Compartments are soft. Skin intact with no surface trauma. Skin: General: Skin is warm and dry. Capillary Refill: Capillary refill takes less than 2 seconds. Neurological: General: No focal deficit present. Mental Status: He is alert and oriented to person, place, and time. Cranial Nerves: No cranial nerve deficit. Sensory: No sensory deficit. Motor: Tremor (At baseline per patient and family at bedside) present. No weakness. Coordination: Coordination normal. Psychiatric: Mood and Affect: Mood normal. Behavior: Behavior normal. Procedures Radiology/EKG/Labs: Results for orders placed or performed during the hospital encounter of 04/20/25 CT HEAD WO CONTRAST Narrative CT HEAD WO CONTRAST 04/20/2025 8:25 PM CLINICAL HISTORY: -fall backyard off a bulldozer. COMPARISON: MRI 09/10/2016. PROCEDURE COMMENTS: Routine noncontrast head CT with multiplanar reconstructions. Dose 1 : CT DLP Total : 1602.13 mGycm DLP Spiral Max : 840.48 mGycm Maximum CTDI Vol : 47.93 mGy FINDINGS: Preserved woodruff-white matter differentiation. No acute hemorrhage. No midline shift. No hydrocephalus. Mild generalized parenchymal volume loss. Asymmetric right parietal scalp swelling and fat stranding. The orbits, paranasal sinuses, and mastoids are grossly unremarkable. Impression No acute intracranial abnormality Right parietal scalp contusion - Note: Radiology results need to be interpreted within a comprehensive clinical context. If you have questions about the radiology report, please contact the office of the ordering clinician. CT CERVICAL SPINE WO CONTRAST Narrative CT CERVICAL SPINE WITHOUT CONTRAST, 04/20/2025 8:28 PM CLINICAL HISTORY: -fall backyard off a bulldozer. COMPARISON: Concurrently obtained CT brain PROCEDURE COMMENTS: Multidetector CT of the cervical spine with multiplanar reformatting per protocol. Dose 1 : CT DLP Total : 1602.13 mGycm DLP Spiral Max : 840.48 mGycm Maximum CTDI Vol : 47.93 mGy FINDINGS: No acute fracture or traumatic malalignment. Prevertebral soft tissues unremarkable. Multilevel degenerative changes noted. Impression No acute bony abnormality of the cervical spine. - Note: Radiology results need to be interpreted within a comprehensive clinical context. If you have questions about the radiology report, please contact the office of the ordering clinician. CT TRAUMA CHEST ABDOMEN PELVIS W CONTRAST Narrative CT CHEST, ABDOMEN, AND PELVIS WITH CONTRAST FOR TRAUMA, 04/20/2025 8:29 PM CLINICAL HISTORY: -fall backyard off a bulldozer. COMPARISON: None. PROCEDURE COMMENTS: Multidetector CT chest, abdomen, and pelvis with multiplanar reconstructions. Isovue 370 IV contrast given as recorded in EPIC. Dose 1 : CT DLP Total : 1844.53 mGycm DLP Spiral Max : 1160.13 mGycm Maximum CTDI Vol : 22.92 mGy FINDINGS: CT CHEST: Heart, arch, and mediastinum intact. No pneumothorax, pulmonary contusion, mediastinal hematoma, or other acute visceral injury. Coronary artery calcification: Moderate. CT ABDOMEN AND PELVIS: The liver, spleen, and remaining upper abdominal viscera appear intact. No intraperitoneal free air. Punctate right nephrolithiasis. No hydronephrosis. No pelvic hematoma or abnormal fluid. Viscera grossly intact. MUSCULOSKELETAL: No visible acute fracture of the sternum, spine, or pelvis. No acute rib fracture. Small fat-containing left and right inguinal hernias, left greater than right. Impression No acute traumatic abnormality in the chest abdomen or pelvis. - Note: Radiology results need to be interpreted within a comprehensive clinical context. If you have questions about the radiology report, please contact the office of the ordering clinician. XR TIBIA FIBULA RIGHT AP AND LATERAL Narrative XR TIBIA FIBULA RIGHT AP AND LATERAL, 04/20/2025 7:01 PM CLINICAL HISTORY: -fall, mid posterior right calf pain COMPARISON: None. PROCEDURE COMMENTS: Orthogonal views of the tibia and fibula. Minimum of two images. FINDINGS: No evidence of acute fracture or traumatic malalignment. No periostitis. No soft tissue gas or foreign body. Vascular calcifications are noted. Impression No acute bony abnormality of the tibia or fibula. This examination does not constitute a diagnostic evaluation of the knee or ankle. If the patient has symptoms localizing to those areas then supplemental dedicated imaging recommended. - Note: Radiology results need to be interpreted within a comprehensive clinical context. If you have questions about the radiology report, please contact the office of the ordering clinician. BASIC METABOLIC PANEL Result Value Ref Range Sodium 142 136 - 145 mmol/L Potassium 4.5 3.5 - 5.0 mmol/L Chloride 107 98 - 107 mmol/L Total CO2 24 22 - 29 mmol/L Anion Gap 11 7 - 16 mmol/L Calcium 10.0 8.8 - 10.4 mg/dL Glucose Lvl 118 (H) 70 - 99 mg/dL BUN 19 8 - 23 mg/dL Creatinine 1.44 (H) 0.67 - 1.30 mg/dL eGFR (CKD-EPIcr 2020) 50 (L) >=60 mL/min/1.73 m2 CBC WITH DIFF Result Value Ref Range WBC 13.1 (H) 3.7 - 10.3 x10(3)/mcL RBC 4.52 (L) 4.60 - 6.10 x10(6)/mcL Hgb 14.2 13.7 - 17.5 g/dL Hct 41.7 40.0 - 51.0 % MCV 92.3 80.0 - 100.0 fL MCH 31.4 26.0 - 34.0 pg MCHC 34.1 30.7 - 35.5 g/dL RDW 12.5 <=14.9 % Platelet 207 155 - 369 x10(3)/mcL MPV 10.4 8.8 - 12.5 fL Neut Percent 70.9 % Imm Gran% 0.4 % Lymph Percent 19.3 % [place] Percent 6.5 % Eos Percent 2.4 % Baso Percent 0.5 % Neut # 9.3 (H) 1.6 - 6.1 x10(3)/mcL IMMGRAN# 0.1 0.0 - 0.1 x10(3)/mcL Lymph # 2.5 1.2 - 3.9 x10(3)/mcL [place] # 0.9 0.3 - 0.9 x10(3)/mcL Eos# 0.3 0.0 - 0.5 x10(3)/mcL Baso # 0.1 0.0 - 0.1 x10(3)/mcL ED Course: Appropriate laboratory and radiology studies reviewed Patient is afebrile and vitals are stable. No focal findings on neurological exam. He does have baseline tremor. Noncontrast CT of the head and cervical spine are negative. CT trauma series of the chest, abdomen,and pelvis are negative for acute internal trauma. X-ray of the right lower leg is negative. Patient was initially offered IV morphine for pain, but declines. He does accept oral Percocet herefor pain. He is given prescription for Robaxin. Educated on supportive management with rest, ice, and elevation of injuries. Follow-up with primary care for assessment of head injury. He is given strict head injury return precautions. He verbalizes understanding is comfortable with plan for discharge. ED Clinical Impression: 1. Fall in home, initial encounter 2. Injury of head, initial encounter 3. Abrasion of scalp, initial encounter 4. Contusion of right lower leg, initial encounter 5. Upper back pain Critical Care time MDM Medical Decision Making Condition at Discharge/Transfer from Department: Stable This chart was completed using voice recognition technology and may contain unintended errors Reji Schultz PA 04/20/252131 Cosigned by Wilian Diaz MD at 04/21/2025 9:39 AM EDT Associated attestation - Wliian Diaz MD - 04/21/2025 9:39 AM EDT Attending Nailing Machine Operator Note: Patient was seen independently by the PA/PRN PHYSICAL THERAPIST. Please see his or her note for details. I was present in the emergency department, and I was available for PA/PRN PHYSICAL THERAPIST consultation during the patient encounter. EKG Reading: No orders to display This chart was completed using voice recognition technology and may contain unintended errors documented in this encounter Plan of Treatment Not on file documented as of this encounter Procedures Procedure Name Priority Date/Time Associated Diagnosis Comments CT TRAUMA CHEST ABDOMEN PELVIS W CONTRAST STAT 04/20/2025 8:[address] CERVICAL SPINE WO CONTRAST STAT 04/20/2025 8:[address] HEAD WO CONTRAST STAT 04/20/2025 8 :25 PM EDT XR TIBIA FIBULA RIGHT AP AND LATERAL KEVIN 04/20/2025 7:01 PM EDT CBC WITH DIFF STAT 04/20/2025 6:41 PM EDT BASIC METABOLIC PANEL STAT 04/20/2025 6:41 PM EDT SALINE LOCK IV STAT 04/20/2025 6:32 PM EDT documented in this encounter Results * CT TRAUMA CHEST ABDOMEN PELVIS W CONTRAST (04/20/2025 8:29 PM EDT) Anatomical Region Laterality Modality Chest, Abdomen, Pelvis Computed Tomography 04/20/2025 8:29 PM EDT Impressions 04/20/2025 8:50 PM EDT No acute traumatic abnormality in the chest abdomen or pelvis. - Note: Radiology results need to be interpreted within a comprehensive clinical context. If you have questions about the radiology report, please contact the office of the ordering clinician. Narrative 04/20/2025 8:[address] CHEST, ABDOMEN, AND PELVIS WITH CONTRAST FOR TRAUMA, 04/20/2025 8:29 PM CLINICAL HISTORY: -fall backyard off a bulldozer. COMPARISON: None. PROCEDURE COMMENTS: Multidetector CT chest, abdomen, and pelvis with multiplanar reconstructions. Isovue 370 IV contrast given as recorded in EPIC. Dose 1 : CT DLP Total : 1844.53 mGycm DLP Spiral Max : 1160.13 mGycm Maximum CTDI Vol : 22.92 mGy FINDINGS: CT CHEST: Heart, arch, and mediastinum intact. No pneumothorax, pulmonary contusion, mediastinal hematoma, or other acute visceral injury. Coronary artery calcification: Moderate. CT ABDOMEN AND PELVIS: The liver, spleen, and remaining upper abdominal viscera appear intact. No intraperitoneal free air. Punctate right nephrolithiasis. No hydronephrosis. No pelvic hematoma or abnormal fluid. Viscera grossly intact. MUSCULOSKELETAL: No visible acute fracture of the sternum, spine, or pelvis. No acute rib fracture. Small fat-containing left and right inguinal hernias, left greater than right. Procedure Note Paulo Holman MD - 04/20/2025 CT CHEST, ABDOMEN, AND PELVIS WITH CONTRAST FOR TRAUMA, 04/20/2025 8:29PM CLINICAL HISTORY: -fall backyard off a bulldozer. COMPARISON: None. PROCEDURE COMMENTS: Multidetector CT chest, abdomen, and pelvis withmultiplanar reconstructions. Isovue 370 IV contrast given as recorded in EPIC. Dose 1 : CT DLP Total : 1844.53 mGycm DLP Spiral Max : 1160.13 mGycm Maximum CTDI Vol : 22.92 mGy FINDINGS: CT CHEST: Heart, arch, and mediastinum intact. No pneumothorax,pulmonary contusion, mediastinal hematoma, or other acute visceral injury. Coronary artery calcification: Moderate. CT ABDOMEN AND PELVIS: The liver, spleen, and remaining upper abdominalviscera appear intact. No intraperitoneal free air. Punctate rightnephrolithiasis. No hydronephrosis. No pelvic hematoma or abnormal fluid. Viscera grossly intact. MUSCULOSKELETAL: No visible acute fracture of the sternum, spine, orpelvis. No acute rib fracture. Small fat-containing left and right inguinalhernias, left greater than right. IMPRESSION: No acute traumatic abnormality in the chest abdomen or pelvis. - Note: Radiology results need to be interpreted within a comprehensiveclinical context. If you have questions about the radiology report, please contactthe office of the ordering clinician. Reji DAVENPORT [facility] CT ORDERABLES Final Result * CT CERVICAL SPINE WO CONTRAST (04/20/2025 8:28 PM EDT) Anatomical Region Laterality Modality C-spine Computed Tomogra phy 04/20/2025 8:2 8 PM EDT Impressions 04/20/2025 8:37 PM EDT No acute bony abnormality of the cervical spine. - Note: Radiology results need to be interpreted within a comprehensive clinical context. If you have questions about the radiology report, please contact the office of the ordering clinician. Narrative 04/20/2025 8:[address] CERVICAL SPINE WITHOUT CONTRAST, 04/20/2025 8:28 PM CLINICAL HISTORY: -fall backyard off a bulldozer. COMPARISON: Concurrently obtained CT brain PROCEDURE COMMENTS: Multidetector CT of the cervical spine with multiplanar reformatting per protocol. Dose 1 : CT DLP Total : 1602.13 mGycm DLP Spiral Max : 840.48 mGycm Maximum CTDI Vol : 47.93 mGy FINDINGS: No acute fracture or traumatic malalignment. Prevertebral soft tissues unremarkable. Multilevel degenerative changes noted. Procedure Note Krishna Marc MD - 04/20/2025 CT CERVICAL SPINE WITHOUT CONTRAST, 04/20/2025 8:28 PM CLINICAL HISTORY: -fall backyard off a bulldozer. COMPARISON: Concurrently obtained CT brain PROCEDURE COMMENTS: Multidetector CT of the cervical spine withmultiplanar reformatting per protocol. Dose 1 : CT DLP Total : 1602.13 mGycm DLP Spiral Max : 840.48 mGycm Maximum CTDI Vol : 47.93 mGy FINDINGS: No acute fracture or traumatic malalignment. Prevertebral soft tissues unremarkable. Multilevel degenerative changes noted. IMPRESSION: No acute bony abnormality of the cervical spine. - Note: Radiology results need to be interpreted within a comprehensiveclinical context. If you have questions about the radiology report, please contactthe office of the ordering clinician. Reji [facility]PORT [facility] ORDERABLES Final Result * CT HEAD WO CONTRAST (04/20/2025 8:25 PM EDT) Anatomical Region Laterality Modality Head Computed Tomogra phy 04/20/2025 8:25 PM EDT Impressions 04/20/2025 8:33 PM EDT No acute intracranial abnormality Right parietal scalp contusion - Note: Radiology results need to be interpreted within a comprehensive clinical context. If you have questions about the radiology report, please contact the office of the ordering clinician. Narrative 04/20/2025 8:[address] HEAD WO CONTRAST 04/20/2025 8:25 PM CLINICAL HISTORY: -fall backyard off a bulldozer. COMPARISON: MRI 09/10/2016. PROCEDURE COMMENTS: Routine noncontrast head CT with multiplanar reconstructions. Dose 1 : CT DLP Total : 1602.13 mGycm DLP Spiral Max : 840.48 mGycm Maximum CTDI Vol : 47.93 mGy FINDINGS: Preserved woodruff-white matter differentiation. No acute hemorrhage. No midline shift. No hydrocephalus. Mild generalized parenchymal volume loss. Asymmetric right parietal scalp swelling and fat stranding. The orbits, paranasal sinuses, and mastoids are grossly unremarkable. Procedure Note Krishna Marc MD - 04/20/2025 CT HEAD WO CONTRAST 04/20/2025 8:25 PM CLINICAL HISTORY: -fall backyard off a bulldozer. COMPARISON: MRI 09/10/2016. PROCEDURE COMMENTS: Routine noncontrast head CT with multiplanar reconstructions. Dose 1 : CT DLP Total : 1602.13 mGycm DLP Spiral Max : 840.48 mGycm Maximum CTDI Vol : 47.93 mGy FINDINGS: Preserved woodruff-white matter differentiation. No acute hemorrhage. Nomidline shift. No hydrocephalus. Mild generalized parenchymal volume loss. Asymmetric right parietal scalp swelling and fat stranding. The orbits, paranasal sinuses, and mastoids are grossly unremarkable. IMPRESSION: No acute intracranial abnormality Right parietal scalp contusion - Note: Radiology results need to be interpreted within a comprehensiveclinical context. If you have questions about the radiology report, please contactthe office of the ordering clinician. Reji DAVENPORT IMG CT ORDERABLES Final Result * XR TIBIA FIBULA RIGHT AP AND LATERAL (04/20/2025 7:01 PM EDT) Anatomical Region Laterality Modality Leg Radiographic Alice ging 04/20/2025 7:01 PM EDT Impressions 04/20/2025 7:09 PM EDT No acute bony abnormality of the tibia or fibula. This examination does not constitute a diagnostic evaluation of the knee or ankle. If the patient has symptoms localizing to those areas then supplemental dedicated imaging recommended. - Note: Radiology results need to be interpreted within a comprehensive clinical context. If you have questions about the radiology report, please contact the office of the ordering clinician. Narrative 04/20/2025 7:09 PM EDT XR TIBIA FIBULA RIGHT AP AND LATERAL, 04/20/2025 7:01 PM CLINICAL HISTORY: -fall, mid posterior right calf pain COMPARISON: None. PROCEDURE COMMENTS: Orthogonal views of the tibia and fibula. Minimum of two images. FINDINGS: No evidence of acute fracture or traumatic malalignment. No periostitis. No soft tissue gas or foreign body. Vascular calcifications are noted. Procedure Note Dong Helms MD - 04/20/2025 XR TIBIA FIBULA RIGHT AP AND LATERAL, 04/20/2025 7:01 PM CLINICAL HISTORY: -fall, mid posterior right calf pain COMPARISON: None. PROCEDURE COMMENTS: Orthogonal views of the tibia and fibula. Minimum oftwo images. FINDINGS: No evidence of acute fracture or traumatic malalignment. No periostitis. No soft tissue gas or foreign body. Vascular calcificationsare noted. IMPRESSION: No acute bony abnormality of the tibia or fibula. This examination does not constitute a diagnostic evaluation of the kneeor ankle. If the patient has symptoms localizing to those areas thensupplemental dedicated imaging recommended. - Note: Radiology results need to be interpreted within a comprehensiveclinical context. If you have questions about the radiology report, please contactthe office of the ordering clinician. Reji DAVENPORT IM DIAGNOSTIC IMAGING ORDERAB LES Final Result * (ABNORMAL) CBC WITH DIFF (04/20/2025 6:41 PM EDT) WBC 13.1(H) 3.7 - 10.3 x10(3)/mcL 04/20/2025 6:59 PM EDT [facility] RBC 4.52(L) 4.60 - 6.10 x10(6)/mcL 04/20/2025 6:59 PM EDT [facility] Hgb 14.2 13.7 - 17.5 g/dL 04/20/2025 6:59 PM EDT [facility] Hct 41.7 40.0 - 51.0 % 04/20/2025 6:59 PM EDT [facility] MCV 92.3 80.0 - 100.0 fL 04/20/2025 6:59 PM EDT [facility] MCH 31.4 26.0 - 34.0 pg 04/20/2025 6:59 PM EDT [facility] MCHC 34.1 30.7 - 35.5 g/dL 04/20/2025 6:59 PM EDT [facility] RDW 12.5 <=14.9 % 04/20/2025 6:59 PM EDT [facility] Platelet 207 155 - 369 x10(3)/mcL 04/20/2025 6:59 PM EDT [facility] MPV 10.4 8.8 - 12.5 fL 04/20/2025 6:59 PM EDT [facility] Neut Percent 70.9 % 04/20/2025 6:59 PM EDT [facility] Comment:Neutrophils equals s egs plus bands Imm Gran% 0.4 % 04/20/2025 6:59 PM EDT [facility] Comment:Automated count of m etamyelocytes, myelocytes and promyelocytes. Lymph Percent 19.3 % 04/20/2025 6:59 PM EDT [facility] [place] Percent 6.5 % 04/20/2025 6:59 PM EDT [facility] Eos Percent 2.4 % 04/20/2025 6:59 PM EDT [facility] Baso Percent 0.5 % 04/20/2025 6:59 PM EDT [facility] Neut # 9.3(H) 1.6 - 6.1 x10(3)/[facility] 04/20/2025 6:59 PM EDT [facility] Comment:Neutrophils equals s egs plus bands IMMGRAN# 0.1 0.0 - 0.1 x10(3)/[facility] 04/20/2025 6:59 PM EDT [facility] Comment:Automated count of m etamyelocytes, myelocytes and promyelocytes. An absolute IG <0.1 is reported as 0.0. Lymph # 2.5 1.2 - 3.9 x10(3)/[facility] 04/20/2025 6:59 PM EDT [facility] [place] # 0.9 0.3 - 0.9 x10(3)/[facility] 04/20/2025 6:59 PM EDT [facility] Eos# 0.3 0.0 - 0.5 x10(3)/[facility] 04/20/2025 6:59 PM EDT [facility] Baso # 0.1 0.0 - 0.1 x10(3)/[facility] 04/20/2025 6:59 PM EDT [facility] Blood VENOUS BLOOD / Unknown Venipuncture / Unknown 04/20/2025 6:41 PM EDT 04/20/2025 6:56 PM EDT us Reji DAVENPORT HEMATOLOGY ORDERABLES Final Re sult [facility] [address] [place] [address] * (ABNORMAL) BASIC METABOLIC PANEL (04/20/2025 6:41 PM EDT) Sodium 142 136 - 145 mmol/L 04/20/2025 7:16 PM EDT [facility] Potassium 4.5 3.5 - 5.0 mmol/L 04/20/2025 7:16 PM EDT [facility] Chloride 107 98 - 107 mmol/L 04/20/2025 7:16 PM EDT [facility] Total CO2 24 22 - 29 mmol/L 04/20/2025 7:16 PM EDT [facility] Anion Gap 11 7 - 16 mmol/L 04/20/2025 7:16 PM EDT [facility] Calcium 10.0 8.8 - 10.4 mg/dL 04/20/2025 7:16 PM EDT [facility] Glucose Lvl 118(H) 70 - 99 mg/dL 04/20/2025 7:16 PM EDT [facility] BUN 19 8 - 23 mg/dL 04/20/2025 7:16 PM EDT [facility] Creatinine 1.44(H) 0.67 - 1.30 mg/dL 04/20/2025 7:16 PM EDT [facility] eGFR (CKD-EPIcr 2020) 50(L) >=60 mL/min/1.7 3 m2 04/20/2025 7:16 PM EDT [facility] Comment:Estimated GFR was ca lculated using the CKD-EPIcr (2020) equation refit without race. The equation is recommended by the National Kidney Foundation - [place] [employer] of Nephrology Task Force. Blood VENOUS BLOOD / Unknown Venipuncture / Unknown 04/20/2025 6:41 PM EDT 04/20/2025 6:56 PM EDT us Reji DAVENPORT CHEMISTRY ORDERABLES Final Res ult [facility] [address] [place] [address] documented in this encounter Visit Diagnoses Diagnosis Fall in home, initial encounter- Primary Injury of head, initial encounter Abrasion of scalp, initial encounter Contusion of right lower leg, initial encounter Upper back pain documented in this encounter Administered Medications Inactive Administered Medications - up to 1 most recent administrations Medication Order MAR Action Action Date Dose Rate Site HYDROcodone-acetaminophen (NORCO) 5-325 mg per tablet 1 Tablet 1 Tablet, Oral, ONCE, 1 dose, On Nelia 04/20/25 at 2130, Maximum adult dose of acetaminophen is 4000 mg from all sources in 24 hours. Given 04/20/2025 10:00 PM EDT 1 Tablet iopamidoL (ISOVUE-370) 370 mg iodine /mL (76 %) injection (LOW) 100 mL 100 mL, Intravenous, ONCE PRN, 1 dose, Starting on Nelia 04/20/25 at 2004, Until Thu04/20/25 at 2028, Radiography/Imaging, Radiology Procedure, VESICANT , CT (Contrasts) Given 04/20/2025 8:29 PM EDT 100 mL ondansetron (ZOFRAN) injection 4 mg 4 mg, Intravenous, ONCE, 1 dose, On Nelia 04/20/25 at 1845 Given 04/20/2025 10:00 PM EDT 4 mg sodium chloride 0.9% IV line flush 50 mL 50 mL, Intravenous, at 999 mL/hr, PRN, Starting on Thu04/20/25 at 1832, Until Thu04/21/25 at 0210, Line Care, Flush with 50 mL after IVPB to insure complete administration of the dose. May use the saline infusion to back flush IVPB tubing as needed., Use this order to document priming and flushing IV line after medication administration. sodium chloride 0.9% syringe 5-10 mL 5-10 mL, Intravenous, PRN, Starting on Thu04/20/25 at 1832, Until Thu04/21/25 at 0210, Line Care, Flush with 5 mL saline pre/post IVP, and 5 mL prior to IVPB or blood product administration. Protocol for PERIPHERAL IV saline lock maintenance, flush with 3-5 mL saline syringe every 8 hours., Flush peripheral lines every 12 hours, central lines every 8 hours, and after IV medication sodium chloride 0.9% syringe Intravenous, ONCE PRN, 1 dose, Starting on Nleia 04/20/25 at 2004, Until Thu04/20/25 at 2028, Line Care, Flush peripheral lines every 12 hours, central lines every 8 hours, and after IV medication, CT (Contrasts) Given 04/20/2025 8:29 PM EDT documented in this encounter Active and Recently Administered Medications Times are shown in EDT. Scheduled Medication Order 04/18/2025 04/19/2025 04/20/2025 HYDROcodone-acetaminophen (NORCO) 5-325 mg per tablet 1 Tablet (COMPLETED) 1 Tablet, Oral, ONCE, 1 dose, On Nelia 04/20/25 at 2130, Maximum adult dose of acetaminophen is 4000 mg from all sources in 24 hours. 2200 (Given - Provid er: Nona Botello RN) morphine injection 4 mg 4 mg, Intravenous, ONCE, 1 dose, On Nelia 04/20/25 at 1845 1845 (Not Given - Pr ovider: Nona Botello RN - Reason: Patient Declined) ondansetron (ZOFRAN) injection 4 mg (COMPLETED) 4 mg, Intravenous, ONCE, 1 dose, On Nelia 04/20/25 at 1845 2200 (Given - Provid er: Nona Botello RN) PRN Medication Order 04/18/2025 04/19/2025 04/20/2025 iopamidoL (ISOVUE-370) 370 mg iodine /mL (76 %) injection (LOW) 100 mL (COMPLETED) 100 mL, Intravenous, ONCE PRN, 1 dose, Starting on Nelia 04/20/25 at 2005, Until Nelia 04/20/25 at 2028, Radiography/Imaging, Radiology Procedure, VESICANT , CT (Contrasts) 2028 (Given - Provid er: Isabelle Walker, Patient Control Clerk Repairs) sodium chloride 0.9% IV line flush 50 mL 50 mL, Intravenous, at 999 mL/hr, PRN, Starting on Nelia 04/20/25 at 1832, Until Thu04/21/25 at 0210, Line Care, Flush with 50 mL after IVPB to insure complete administration of the dose. May use the saline infusion to back flush IVPB tubing as needed., Use this order to document priming and flushing IV line after medication administration. sodium chloride 0.9% syringe 5-10 mL 5-10 mL, Intravenous, PRN, Starting on Nelia 04/20/25 at 1832, Until Thu04/21/25 at 0210, Line Care, Flush with 5 mL saline pre/post IVP, and 5 mL prior to IVPB or blood product administration. Protocol for PERIPHERAL IV saline lock maintenance, flush with 3-5 mL saline syringe every 8 hours., Flush peripheral lines every 12 hours, central lines every 8 hours, and after IV medication sodium chloride 0.9% syringe (COMPLETED) Intravenous, ONCE PRN, 1 dose, Starting on Nelia 04/20/25 at 2004, Until Nelia 04/20/25 at 2028, Line Care, Flush peripheral lines every 12 hours, central lines every 8 hours, and after IV medication, CT (Contrasts) 2028 (Given - Provid er: Isabelle Walker, Patient Control Clerk Repairs) documented in this encounter Orders Medications Ordered That Star ht Not Have Been Administered Count Last Ordered Date First Ordered Date morphine injection 4 mg 1 04/20/2025 sodium chloride 0.9% IV line flush 50 mL 1 04/20/2025 sodium chloride 0.9% syringe 5-10 mL 1 04/09 IV Count Last Ordered Date First Orde red Date SALINE LOCK IV 1 04/20/2025 documented in this encounter Additional Health Concerns Assessment Noted Time A fall risk assessment has been complete d for the patient 11/23/2017 11:07 AM EST documented as of this encounter Care Teams Dye Boarding Machine Operator Relationship Specialty Start Date End Date Alonso You MD PCP - General Family Medicine 04/29/16 documented as of this encounter
[2025-06-07 16:09] LABS: Alanine Aminotransferase 9 U/L (12-78); Albumin Level 4.2 g/dl (3.5-5.0); Albumin/Globulin Ratio 1.9 (1.1-1.8); Alkaline Phosphatase 58 U/L (38-126); Anion Gap 10.3 mEq/L (5-15); Aspartate Amino Transferase 26 U/L (17-59); Bilirubin,Total 0.5 mg/dl (0.2-1.3); Blood Urea Nitrogen 19 mg/dl (9-20); Calcium 9.9 mg/dl (8.4-10.2); Carbon Dioxide 28 mmol/L (22.0-30.0); Chloride 105 mmol/L (98-107); Cholesterol 149 mg/dl (140-200); Creatinine,Serum 1.10 mg/dl (0.66-1.25); Estimated Glomerular Filt Rate 65 ml/min (>60); GFR (African American) 79 ML/MIN (>60); Globulin 2.2 g/dL (1.3-3.2); Glucose 167 mg/dl (74-100); HDL Cholesterol 29 mg/dl (40-60); Potassium 4.3 mmoL/L (3.5-5.1); Sodium 139 mmol/L (136-145); Total Protein,Serum 6.4 g/dl (6.3-8.2); Triglycerides 149 mg/dl (30-150)
[2025-06-07 16:35] LABS: Thyroid Stimulating Hormone 0.47 uIU/mL (0.465-4.68)
[2025-06-07 16:50] LABS: Hepatitis C Ab Qual. W/ RFX NEGATIVE (Negative)
[2025-06-08 05:15] LABS: Hepatitis B Surface Antigen Negative (Negative)
--- OUTSIDE RECORDS SUMMARY | 2025-06-08 11:48 | XMS_ITS | Clinical Summary ---
Author Organization [facility] Address [address] [place] [address] Phone Care Team Providers Care Director Water And Waste Services Name Role Phone Alonso You MD Primary Care Provider [phone] Allergies Active Allergy Reactions Criticality Noted Date Comments Penicillins Rash 05/01/2016 Medications metoprolol succinate ER (TOPROL-XL) 100 mg Oral Tablet Sustained Release 24 hr Take 100 mg by mouth daily. Active losartan-hydroc hlorothiazide (HYZAAR) 50-12.5 mg Oral Tablet Take 1 Tab by mouth daily. Active gemfibrozil (LOPID) 600 mg Oral Tablet 7 Active LORazepam (ATIVAN) 1 mg Oral Tablet Take 1 mg by mouth nightly. 7 Active Rasagiline 1 mg Oral Tablet daily. 7 Active levothyroxine (SYNTHROID) 125 mcg Oral Tablet 7 Active carbidopa-levod opa (SINEMET) 25-250 mg Oral Tablet Take 1 Tab by mouth 3 times daily. Active Fenofibric Acid 135 mg Oral Capsule, Delayed Release(E.C.) 8 Active pravastatin (PRAVACHOL) 20 mg Oral Tablet Take by mouth nightly. Active ascorbic acid, vitamin C, (VITAMIN C) 1,000 mg Oral Tablet Take 1,000 mg by mouth daily. Active fish oil omega 3-dha-epa 300-1,000 mg Oral Capsule, Delayed Release(E.C.) Take 1 g by mouth daily. Active levocetirizine (XYZAL) 5 mg Oral Tablet Take 5 mg by mouth every evening. Active aspirin 81 mg Oral Tablet, Delayed Release (E.C.) Take by mouth daily. Active tocopherol acetate (VITAMIN E) 400 unit Oral Capsule Take by mouth daily. Active docusate sodium (COLACE) 100 mg Oral Capsule Take 1 Cap by mouth 2 times daily as needed for Constipation. 40 Cap 8 Active Additional Information Patient not taking.Reported on 06/10/2023 cetirizine (ZYRTEC) 10 mg Oral Tablet Take 10 mg by mouth daily. Active lisinopriL-hydr ochlorothiazide (PRINZIDE;ZESTO RETIC) 20-12.5 mg Oral Tablet Take 1 Tablet by mouth daily. Active acetaminophen (TYLENOL) 650 mg Oral Tablet Sustained Release Take 650 mg by mouth every 8 hours as needed for Pain. Active lidocaine (LIDODERM) 5 % Top Adhesive Patch, Medicated Place 1 Patch onto the skin daily. Apply for 12 hours, remove for 12 hours, then apply new patch 30 Patch 5 Active methocarbamoL (ROBAXIN) 750 mg Oral Tablet Take 1 Tablet by mouth 3 times daily as needed for Pain for up to 30 days. 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 [place] [address] Wilian Diaz MD Fall in home, initial encounter (Primary Dx); Injury of head, initial encounter; Abrasion of scalp, initial encounter; Contusion of right lower leg, initial encounter; Upper back pain Discharge Disposition: Home or Self Care 04/20/2025 Travel from Last 3 Months Surgical History Surgery Date Site/Laterality Comments APPENDECTOMY COLONOSCOPY CARDIAC CATHETERIZATION distant past 15-20 years ago HYDROCELE EXCISION 12/16/2017 Right RIGHT OPEN HYDROCELECTOMY; Surgeon: Nell Sheppard MD; Location: ED MAIN OR; Service: Urology Medical History Medical History Date Comments History of metal removed from eye needs clearance for future mris. dt Hypertension Hyperlipidemia Insomnia Arthritis Headache sinus Parkinson disease (HCC) Thyroid disease hypo Family History Medical History Relation Name Comments Heart Disease Father High Cholesterol Father Cancer Mother Breast Relation Name Status Comments Father Mother Social History Tobacco Use Types Packs/Day Years Used Date Smoking Tobacco: Never Smokeless Tobacco: Never Alcohol Use Standard Drinks/Week Comments Yes 0 (1 standard drink = 0.6 oz pur e alcohol) Rarely Sex and Gender Information Value Date Recorded Sex Assigned at Not on file Legal Sex Male 5:47 PM EDT Gender Identity Not on file Sexual Orientation Not on file Obstetrics History Last Filed Vital Signs Vital Sign Reading Time Taken Comments Blood Pressure 137/83 04/20/2025 10:00 PM EDT Pulse 63 04/20/2025 8:00 PM EDT Temperature 36.7 C (98.1 F) 04/20/2025 5:30 PM EDT Respiratory Rate 16 04/20/2025 8:00 PM EDT Oxygen Saturation 97% 04/20/2025 9:30 PM EDT Inhaled Oxygen Concentration - - Weight 101.2 kg (223 lb) 06/10/2023 3:17 PM EDT Height 177.8 cm (5' 10 ) 06/10/2023 3:17 PM EDT Body Mass Index 32 06/10/2023 3:17 PM EDT Plan of Treatment Health Maintenance Due Date Last Done Comments Wellness Exam Medicare 1953 Hepatitis C Screening 1968 Pneumococcal Vaccine 50+ (1 of 1 - PCV) 1998 Zoster (1 of 2) 1998 RSV or 60+ (1 - 1-dose 75+ series) 2023 COVID-19 Vaccine ( season) 2024 12/19/2021, 08/03/2021, 07/02/2021, Additional history exists Influenza Vaccine (#1) 2025 DTaP/TDaP/Td (2 - Td or Tdap) 08/24/2028 08/24/2018 Hepatitis B Vaccine Aged Out No longe r eligible based on patient's age to complete this topic Meningococcal B Vaccine Aged Out No l onger eligible based on patient's age to complete this topic Procedures Procedure Name Priority Date/Time Associated Diagnosis [...] LOCK IV STAT 04/20/2025 6:32 PM EDT from Last 3 Months Results * CT TRAUMA CHEST ABDOMEN PELVIS [...] office of the ordering clinician. Reji DAVENPORT [facility] CT ORDERABLES Final Result * CT CERVICAL [...] of the ordering clinician. Reji DAVENPORT IMG DIAGNOSTIC IMAGING ORDERAB LES Final Result * (ABNORMAL) CBC WITH DIFF (04/20/2025 6:41 PM EDT) [facility] WBC 13.1(H) 3.7 - 10.3 x10(3)/mcL 04/20/2025 6:59 PM EDT [facility] RBC 4.52(L) 4.60 - 6.10 x10(6)/mcL 04/20/2025 6:59 PM EDT [facility] Hgb 14.2 13.7 - 17.5 g/dL 04/20/2025 6:59 PM EDT [facility] Hct 41.7 40.0 - 51.0 % 04/20/2025 6:59 PM EDT [facility] MCV 92.3 80.0 - 100.0 fL 04/20/2025 6:59 PM EDT [facility] MCH 31.4 26.0 - 34.0 pg 04/20/2025 6:59 PM EDT [facility] MCHC 34.1 30.7 - 35.5 g/dL 04/20/2025 6:59 PM EDT [facility] RDW 12.5 <=14.9 % 04/20/2025 6:59 PM EDT [facility] Platelet 207 155 - 369 x10(3)/mcL 04/20/2025 6:59 PM EDT [facility] MPV 10.4 8.8 - 12.5 fL 04/20/2025 6:59 PM EDT [facility] Neut Percent 70.9 % 04/20/2025 6:59 PM EDT [facility] Comment:Neutrophils equals s egs plus bands Imm Gran% 0.4 % 04/20/2025 6:59 PM EDT [facility] Comment:Automated count of m etamyelocytes, myelocytes and promyelocytes. Lymph Percent 19.3 % 04/20/2025 6:59 PM EDT [facility] [place] Percent 6.5 % 04/20/2025 6:59 PM EDT [facility] Eos Percent 2.4 % 04/20/2025 6:59 PM EDT [facility] Baso Percent 0.5 % 04/20/2025 6:59 PM EDT [facility] Neut # 9.3(H) 1.6 - 6.1 x10(3)/mcL 04/20/2025 6:59 PM EDT [facility] Comment:Neutrophils equals s egs plus bands IMMGRAN# 0.1 0.0 - 0.1 x10(3)/mcL 04/20/2025 6:59 PM EDT [facility] Comment:Automated count of m etamyelocytes, myelocytes and promyelocytes. An absolute IG <0.1 is reported as 0.0. Lymph # 2.5 1.2 - 3.9 x10(3)/mcL 04/20/2025 6:59 PM EDT [facility] [place] # 0.9 0.3 - 0.9 x10(3)/[facility] 04/20/2025 6:59 PM EDT [facility] Eos# 0.3 0.0 - 0.5 x10(3)/[facility] 04/20/2025 6:59 PM EDT [facility] Baso # 0.1 0.0 - 0.1 x10(3)/[facility] 04/20/2025 6:59 PM EDT [facility] Blood VENOUS BLOOD / Unknown Venipuncture / Unknown 04/20/2025 6:41 PM EDT 04/20/2025 6:56 PM EDT us Reji DAVENPORT HEMATOLOGY ORDERABLES Final Re sult [facility] [address] [place] [id number] * (ABNORMAL) BASIC METABOLIC PANEL (04/20/2025 6:41 PM EDT) Sodium 142 136 - 145 mmol/L 04/20/2025 7:16 PM EDT [facility] Potassium 4.5 3.5 - 5.0 mmol/L 04/20/2025 7:16 PM EDT [facility] Chloride 107 98 - 107 mmol/L 04/20/2025 7:16 PM EDT [facility] Total CO2 24 22 - 29 mmol/L 04/20/2025 7:16 PM EDT [facility] Anion Gap 11 7 - 16 mmol/L 04/20/2025 7:16 PM EDT [facility] Calcium 10.0 8.8 - 10.4 mg/dL 04/20/2025 7:16 PM EDT [facility] Glucose Lvl 118(H) 70 - 99 mg/dL 04/20/2025 7:16 PM EDT [facility] BUN 19 8 - 23 mg/dL 04/20/2025 7:16 PM EDT [facility] Creatinine 1.44(H) 0.67 - 1.30 mg/dL 04/20/2025 7:16 PM EDT [facility] eGFR (CKD-EPIcr 2020) 50(L) >=60 mL/min/1.7 3 m2 04/20/2025 7:16 PM EDT [facility] Comment:Estimated GFR was ca lculated using the CKD-EPIcr (2020) equation refit without race. The equation is recommended by the National Kidney Foundation - [place] [employer] of Nephrology Task Force. Blood VENOUS BLOOD / Unknown Venipuncture / Unknown 04/20/2025 6:41 PM EDT 04/20/2025 6:56 PM EDT us Reji DAVENPORT CHEMISTRY ORDERABLES Final Res ult [facility] [address] [place] [address] from Last 3 Months Insurance [id number] [place] [id number] [employer] MEDICARE ADVANTAGE MR Care Teams Director Water And Waste Services Relationship Specialty Start Date End Date Alonso You MD PCP - General Family Medicine 04/29/16
--- OUTSIDE RECORDS SUMMARY | 2025-06-08 11:48 | XMS_ITS | Encounter Summary ---
Author Organization [facility] [place] [address] Care Team Providers Care Finish Mixer Name Role Phone Alonso You MD Primary Care Provider [phone] Encounter Details Date Type Department Care Team (Latest Contact Info) Description 04/20/2025 Travel Social History Tobacco Use Types Packs/Day Years [...] on file documented as of this encounter Functional Status * Suicide Severity Rating Answer Date of Assessment Author No Risk 04/20/2025 5:17 PM EDT Suellen Joy RN * [place] Suicide Severity Rating Scale (Q shift for [...] Joy RN 6. Have you ever done anythi ng, started to do anything, or prepared to do anything to end your life? 0 04/20/2025 5:17 PM EDT Vita Joy RN documented as of this encounter Plan of Treatment Not on file documented as of this encounter Visit Diagnoses Not on filedocumented in this encounter Additional Health Concerns Assessment Noted Time A fall risk assessment has been complete d for the patient 11/23/2017 11:07 AM EST documented as of this encounter Care Teams Finish Mixer Relationship Specialty Start Date End Date Alonso You MD PCP - General Family Medicine 04/29/16 documented as of this encounter
== END 2025-06-07 23:59 | disposition home or self-care (01) ==
LOC: LAB.DROPOF 06-08 11:44
PROVIDERS: PCP Family Medicine; Visit Provider Family Medicine
DX: G20.A1 Parkinson's disease without dyskinesia, without mention of fluctuations (principal); I10 Essential (primary) hypertension; Z12.5 Encounter for screening for malignant neoplasm of prostate; Z11.59 Encounter for screening for other viral diseases; Z86.0100 Personal history of colon polyps, unspecified
CPT/HCPCS: 80053; 80061; 84443; 86803; 87340; 87389; G0103

== ENCOUNTER 2025-10-03 11:30 | Outpatient (CLI) | payer MEDICARE, SELFPAY ==
[2025-10-03 14:56] LABS: Hematocrit 42.0 % (42.0-52.0); Hemoglobin 14.3 g/dL (14.1-18.0); Immature Granulocytes % 0.3 %; Mean Corpuscular HGB Conc 34.0 g/dL (31.8-35.4); Mean Corpuscular Hemoglobin 31.8 pg (27.0-31.2); Mean Corpuscular Volume 93.3 fl (80-94); Nucleated Red Blood Cells % 0 %; Platelet Count 209 K/mm3 (142-424); Red Blood Count 4.50 M/mm3 (4.60-6.20); Red Cell Distribution Width-SD 43.9 fL; White Blood Count 6.1 K/mm3 (4.8-10.8)
[2025-10-03 16:18] LABS: Albumin Level 4.1 g/dl (3.5-5.0)
[2025-10-03 16:19] LABS: Chloride 106 mmol/L (98-107); Potassium 4.1 mmoL/L (3.5-5.1); Sodium 144 mmol/L (136-145)
[2025-10-03 16:21] LABS: Alanine Aminotransferase 42 U/L (12-78); Anion Gap 16.1 mEq/L (5-15); Aspartate Amino Transferase 31 U/L (17-59); Blood Urea Nitrogen 22 mg/dl (9-20); Carbon Dioxide 26 mmol/L (22.0-30.0); Creatinine,Serum 1.00 mg/dl (0.66-1.25); Estimated Glomerular Filt Rate 72 ml/min (>60); GFR (African American) 88 ML/MIN (>60)
[2025-10-03 16:22] LABS: Albumin/Globulin Ratio 1.5 (1.1-1.8); Alkaline Phosphatase 49 U/L (38-126); Bilirubin,Total 0.7 mg/dl (0.2-1.3); Calcium 9.5 mg/dl (8.4-10.2); Cholesterol 142 mg/dl (140-200); Globulin 2.7 g/dL (1.3-3.2); Glucose 115 mg/dl (74-100); HDL Cholesterol 34 mg/dl (40-60); Total Protein,Serum 6.8 g/dl (6.3-8.2); Triglycerides 102 mg/dl (30-150)
[2025-10-03 16:35] LABS: Free T4 (Free Thyroxine) 1.40 ng/dl (0.78-2.19)
[2025-10-03 16:49] LABS: Thyroid Stimulating Hormone 0.10 uIU/mL (0.465-4.68)
[2025-10-03 16:57] LABS: Hemoglobin A1C 6.1 % (4.0-6.0)
[2025-10-03 18:42] LABS: Vitamin B12 358 pg/mL (239-931)
--- OUTSIDE RECORDS SUMMARY | 2025-10-04 10:05 | XMS_ITS | Clinical Summary ---
Author Organization 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 Surgical History Surgery Date Site/Laterality Comments APPENDECTOMY COLONOSCOPY CARDIAC CATHETERIZATION distant past 15-20 years ago HYDROCELE EXCISION 12/16/2017 Right RIGHT OPEN HYDROCELECTOMY; Surgeon: Nell Sheppard MD; Location: [facility] OR; Service: Urology Medical History Medical [...] on file Sexual Orientation Not on file Last Filed Vital Signs Vital Sign Reading [...] 75+ series) 2023 COVID-19 Vaccine ( season) 2025 12/19/2021, 08/03/2021, 07/02/2021, Additional history exists Influenza Vaccine (#1) 2025 DTaP/TDaP/Td (2 - Td or Tdap) 08/24/2028 08/24/2018 Hepatitis B Vaccine Aged Out No longe r eligible based on patient's age to complete this topic Meningococcal B Vaccine Aged Out No l onger eligible based on patient's age to complete this topic Insurance [facility] MEDICARE ADVANTAGE MR Care Teams Draw Frame Tender Relationship Specialty Start Date End Date Alonso You MD PCP - General Family Medicine 04/29/16
== END 2025-10-03 23:59 ==
LOC: LAB.DROPOF 10-04 09:58
PROVIDERS: PCP Nurse Practitioner; Visit Provider Nurse Practitioner
DX: E11.9 Type 2 diabetes mellitus without complications (principal); G20.A1 Parkinson's disease without dyskinesia, without mention of fluctuations; I10 Essential (primary) hypertension; M15.4 Erosive (osteo)arthritis; F41.9 Anxiety disorder, unspecified; Z86.39 Personal history of other endocrine, nutritional and metabolic disease
CPT/HCPCS: 80053; 80061; 82043; 82570; 82607; 83036; 84439; 84443; 85025